=== PATIENT | male | born 1985 | race Hispanic/Latino ===

== ENCOUNTER 2024-02-13 19:03 | Emergency (ER) | payer OTHER, SELFPAY ==
[2024-02-13 19:04] VITALS: BP 140/73; PULSE 74; RESP 16; TEMP 36.6; O2SAT 99; BMI 26.6
--- NOTE | 2024-02-13 19:42 | EX.ED.GUMALE ---
HPI History of Present Illness Chief Complaint: Male Pain/Injury Informant: patient Pain Onset: Days Context: Gradual Onset Timing: Continuous Worsened by: Eating Relieved by: Nothing Narrative Narrative: Patient presents with lower abdominal pain, low back pain, chest pain, and shortness of breath that has been getting worse over the past several days. Patient states it is gradually getting worse. Patient admits to some nausea but denies any vomiting. Patient states his symptoms are worse with eating. Patient is nothing makes them better. Patient denies any fevers or chills. Patient denies any trauma or injury. Patient denies any dysuria, frequency, or hematuria. Patient denies any urethral discharge. [facility] Medical History Vapes nicotine containing substance Anxiety Home Medications ?Medication ?Instructions ?Recorded ?Last Taken ?Type ciprofloxacin HCl 500 mg tablet 500 mg PO BID #14 TABLETS 02/13/24 Unknown Rx doxepin 25 mg capsule 50 mg PO QHS PRN sleep 02/13/24 Unknown History Allergy/AdvReac Type Severity Reaction Status Date / Time No Known Allergies Allergy Verified 02/13/24 19:04 Surgical History no surgical history no surgical history Social History Smoking Status: Current every day smoker tobacco type: smokeless tobacco ROS ROS ED Constitutional Constitutional ED: Denies chills or fever(s) Eyes Eyes: Reports blurry vision ENT ENT ED: Denies rhinorrhea or sore throat Cardiovascular Cardiovascular: Reports chest pain; Denies palpitations Respiratory/Chest Respiratory/Chest: Reports dyspnea; Denies cough Gastrointestinal Gastrointestinal: Reports abdominal pain and nausea; Denies vomiting Genitourinary Genitourinary ED: Denies dysuria, hematuria or urinary frequency Musculoskeletal Musculoskeletal: Reports back pain; Denies neck pain Integumentary Denies abscess or rash Neurologic Neurologic: Denies headache(s) or weakness Allergic/Immunologic Allergic/Immunologic ED: Denies mouth swelling or urticaria EXAM Physical Exam Const Vital Signs: 02/13/24 19:04 02/13/24 21:04 Temperature 98 F Temperature Source Oral Pulse Rate 74 63 Respiratory Rate 16 16 Blood Pressure 140/73 H 137/86 H Blood Pressure Mean 95 103 Pulse Ox 99 98 Oxygen Delivery Method Room Air Room Air Positive well nourished and well developed General Appearance ED: well developed and NAD HEENT Reports moist mucous membranes normocephalic and atraumatic Neck supple and no JVD Resp normal respiratory effort and clear to auscultation bilaterally Cardio regular rate and regular rhythm GI non-tender and non-distended Palpation: soft Narrative: The testicles have a vertical lie bilaterally. There is good cremasteric reflex bilaterally. There is some mild tenderness over the epididymis of the left testicle. There is some mild tenderness in the left inguinal canal. There is no hernia palpated. There are no masses palpated. There are no external penile lesions noted. There is no urethral discharge noted. Neuro oriented x3, CN's II-XII intact bilaterally, moves all extremities, no focal motor deficits and no sensory deficits noted Sensorium / Orientation: alert Motor Exam: strength 5/5 throughout Psych mental status grossly normal MDM MDM MDM Narrative Medical decision making narrative: Differential diagnosis includes epididymitis, urinary tract infection, viral illness, and sexually transmitted disease. Urinalysis will be obtained to assess for urinary tract infection and hematuria. Urine for GC and chlamydia will be obtained to assess for sexually transmitted disease. CBC will be obtained to assess for leukocytosis and anemia. Basic metabolic profile will be obtained to assess for electrolyte abnormality and renal function. Lab Data Attestation: I reviewed the patient's lab results. Lab results narrative: CBC was reviewed and was within normal limits. Basic metabolic profile was reviewed and was within normal limits. Urinalysis was reviewed. There is no evidence of urinary tract infection or hematuria. GC and Chlamydia cultures were reviewed and were negative. Labs: Laboratory Results - last 24 hr 02/13/24 02/13/24 19:55 20:08 WBC 8.7 RBC 5.14 Hgb 15.9 Hct 46.9 MCV 91.2 MCH 30.9 MCHC 33.9 RDW Std Deviation 41.7 RDW Coeff of Rakesh 12.5 Plt Count 326 MPV 9.4 Immature Gran % (Auto) 0.200 Neut % (Auto) 59.0 Lymph % (Auto) 32.1 [place] % (Auto) 6.7 Eos % (Auto) 1.5 Baso % (Auto) 0.5 Absolute Neuts (auto) 5.1 Absolute Lymphs (auto) 2.78 Nucleated RBC % 0 Sodium 138 Potassium 3.8 Chloride 107 Carbon Dioxide 27.0 Anion Gap 4 L BUN 14 Creatinine 1.10 Estim Creat Clear Calc 88.95 Est GFR (MDRD) Af Amer 97 Est GFR (MDRD) Non-Af 80 BUN/Creatinine Ratio 12.7 Glucose 108 H Calcium 9.7 Urine Color Straw Urine Clarity Clear Urine pH 8.0 Ur Specific [place] 1.010 Urine Protein Negative Urine Glucose (UA) Normal Urine Ketones Negative Urine Occult Blood Negative Urine Nitrite Negative Urine Bilirubin Negative Urine Urobilinogen Normal Ur Leukocyte Esterase Negative Urine RBC 0-5 SEEN Urine WBC 0 SEEN Ur Squamous Epith Cells 0-5 SEEN Ur Transition Epith Cell 0-5 SEEN Urine Bacteria 0 SEEN Urine Mucus 0 SEEN Treatment and Re-Evaluation Narrative: Patient was advised of his findings. Patient was advised that this is most likely epididymitis. Patient was given a dose of Cipro here. Patient was given a prescription for Cipro. Patient was instructed to drink plenty of fluids. Patient was instructed to follow-up with his primary care physician in 5 to 7 days. Patient understood and was agreeable with the plan. All questions were answered. Discharge Plan Triage Chief Complaint: Male Pain/Injury ED Provider: Milidn Pagan Dx/Rx/DC Orders Clinical Impression: Epididymitis Instructions: ED Epididymitis Prescriptions: New ciprofloxacin HCl 500 mg tablet 500 mg PO BID Qty: 14 0RF No Action doxepin 25 mg capsule 50 mg PO QHS PRN (Reason: sleep) Primary Care Provider: Care Physician,No Primary Referrals: Carol Goodman MD [Med Staff - Active Staff] - 5-7 Days Care Physician,No Primary [Primary Care Provider] - Print Language: Maltese Disposition Disposition: Home, Self Care
[2024-02-13 20:11] LABS: Absolute Lymphocyte Count 2.78 X10^3/uL (0.83-4.51); Absolute Neutrophil Count 5.1 X10^3/uL (2.0-7.7); Basophil# 0.04 X10^3/uL; Basophil% 0.5 % (0-1); Eosinophil# 0.13 X10^3/uL; Eosinophils% 1.5 % (0-5); Hematocrit 46.9 % (40-54); Hemoglobin 15.9 g/dL (13.0-16.5); Lymphocyte # 2.78 X10^3/ul (0.83-4.51); Lymphocyte % 32.1 % (19-41); Mean Corp Hgb Conc 33.9 g/dL (32-36); Mean Corpuscular Hgb 30.9 pg (27.0-32.0); Mean Corpuscular Volume 91.2 fL (80-94); Mean Platelet Vol. 9.4 fl (6.2-12.0); Monocyte# 0.58 X10^3/uL; Monocyte% 6.7 % (0-10); NRBC Flagged by Analyzer 0 % (0-5); Neutrophil # 5.12 X10^3/uL (2.7-7.7); Platelet Count 326 K/mm3 (150-450); RBC Distribution Width CV 12.5 % (11.6-14.6); RBC Distribution Width SD 41.7 fl (35.1-43.9); Red Blood Count 5.14 M/mm3 (4.6-6.2); White Blood Count 8.7 K/mm3 (4.4-11.0)
[2024-02-13 20:18] LABS: Bacteria 0 SEEN /hpf (None Seen); Mucous, Urine 0 SEEN /hpf (<or=2+); White Blood Cells 0 SEEN /hpf (0-5)
[2024-02-13 20:20] LABS: Color, Urine Straw (Yellow); Glucose, Dipstick Normal (Normal); Ketone-Dipstick Negative (Negative); Leukocyte Esterase-Dipstick Negative /ul (Negative); Nitrite-Dipstick Negative (Negative); Occult Blood-Urine Negative /ul (Negative); Protein-Dipstick Negative (Negative); Urine Bilirubin Dipstick Negative (Negative); Urine Clarity Clear (Clear); Urine Urobilinogen Normal (Normal)
[2024-02-13 20:28] LABS: Anion Gap 4 (5-15); BUN 14 mg/dL (7-18); BUN/Creat Ratio 12.7 RATIO (10-20); Calcium,Total 9.7 mg/dL (8.5-10.1); Chloride 107 mmol/L (98-107); EST Glomerular Filtration Rate 80 mL/min (>60); Est Glom Filt Rate - Afr Amer 97 mL/min (>60); Estimated Creatinine Clearance 88.95 ml/min; Glucose 108 mg/dL (74-106); Potassium 3.8 mmol/L (3.5-5.1); Sodium Level 138 mmol/L (136-145)
[2024-02-13 20:32] LABS: Squamous Epithelial Cells - UA 0-5 SEEN /hpf (0-5)
[2024-02-13 20:34] LABS: Red Blood Cells-Urine 0-5 SEEN /hpf (0-5); Transitional Epithelial - Ur 0-5 SEEN /hpf (0-5)
[2024-02-13 21:04] VITALS: BP 137/86; PULSE 63; RESP 16; O2SAT 98
[2024-02-13 22:00] VITALS: BP 138/71; PULSE 59; RESP 16; TEMP 36.7; O2SAT 98
[2024-02-13 22:40] VITALS: BP 139/70; PULSE 56; RESP 16; TEMP 36.6; O2SAT 97
[2024-02-13] MEDS: Ciprofloxacin 500 MG Tablet PO (22:46)
== END 2024-02-13 22:47 | disposition home or self-care (01) ==
PROVIDERS: Emergency Provider Emergency Medicine; Visit Provider Emergency Medicine
DX: N45.1 Epididymitis (principal); R11.0 Nausea; R06.02 Shortness of breath; M54.50 Low back pain, unspecified; F17.290 Nicotine dependence, other tobacco product, uncomplicated
CPT/HCPCS: 80048; 81001; 85025; 87491; 87591; 99283

== ENCOUNTER 2024-03-27 15:15 | Emergency (ER) | payer MEDICAID, SELFPAY ==
[2024-03-27 15:16] VITALS: BP 130/97; PULSE 95; RESP 16; TEMP 36.6; O2SAT 99; BMI 27.0
[2024-03-27 16:39] VITALS: BP 124/78; PULSE 78; RESP 16; TEMP 37; O2SAT 98
[2024-03-27 17:00] VITALS: BP 125/71; PULSE 68; RESP 16; TEMP 36.7; O2SAT 99
--- NOTE | 2024-03-27 17:22 | CT_ITS ---
PROCEDURE: ABDOMEN/PELVIS W IV CONT ONLY REASON FOR EXAM: Abdominal pain. Diarrhea. TECHNIQUE: Abdomen and pelvis CT with intravenous contrast. Coronal and sagittal 2D reformatted images were provided. COMPARISON: None. FINDINGS: Lung bases are clear. Liver and spleen are unremarkable. Gallbladder is contracted. Pancreas, biliary system, and adrenal glands are unremarkable. Abdominal aorta demonstrates a normal caliber. There is a small fat containing umbilical hernia. Bilateral kidneys enhance homogeneously without hydronephrosis. Urinary bladder is smoothly contoured. Prostate calcifications are present. No colonic obstruction or pericolonic inflammatory changes are present. Appendix is unremarkable. Small bowel demonstrates a normal caliber. No free air or free fluid is identified. Evaluation of the osseous structures demonstrates no acute findings. CT/Abdomen/Pelvis W IV Cont ONLY IMPRESSION: No acute inflammatory changes, obstructive uropathy, free air, or free fluid. One or more dose reduction techniques were used (e.g., Automated exposure contr ol, adjustment of the mA and/or kV according to patient size, use of iterative reconstruction technique). Reading Location: [facility]
--- NOTE | 2024-03-27 17:22 | EX.ED.DYSGE1 ---
HPI History of Present Illness Chief Complaint: General Illness Detail of Chief Complaint: Diarrhea and abdominal pain Informant: patient Narrative Narrative: Patient presents with diarrhea and abdominal pain. Patient states he has had diarrhea since January and has not had a formed stool since then. He does recall being on an antibiotic in January but he cannot remember what antibiotic but thinks it was for a urinary tract infection. Patient denies any blood in his stool. He does describe diffuse abdominal pain. No history of inflammatory bowel disease. No prior abdominal surgeries. [facility] Medical History Vapes nicotine containing substance Anxiety Home Medications ?Medication ?Instructions ?Recorded ?Last Taken ?Type ciprofloxacin HCl 500 mg tablet 500 mg PO BID #14 TABLETS 02/13/24 Unknown Rx doxepin 25 mg capsule 50 mg PO QHS PRN sleep 02/13/24 Unknown History Allergy/AdvReac Type Severity Reaction Status Date / Time No Known Allergies Allergy Verified 03/27/24 15:21 Social History (Updated 03/27/24 @ 16:41 by Alyssa Souza) household members: significant other housing: apartment Smoking Status: Current every day smoker tobacco type: smokeless tobacco ROS ROS ED Review of Systems ROS Unobtainable: other Constitutional Constitutional ED: Reports lethargy; Denies chills, fever(s), sweats or weight loss Eyes Eyes: Denies blurry vision, change in vision or diplopia ENT ENT ED: Denies rhinorrhea or sore throat Cardiovascular Cardiovascular: Denies chest pain, orthopnea or racing heartbeat Respiratory/Chest Respiratory/Chest: Denies cough, dyspnea, dyspnea on exertion, orthopnea or sputum Gastrointestinal Gastrointestinal: Reports abdominal pain and diarrhea; Denies nausea or vomiting Genitourinary Genitourinary ED: Denies dysuria, hematuria or urinary frequency Musculoskeletal Musculoskeletal: Denies arthralgias, back pain, myalgias or neck pain Integumentary Denies abscess, Abrasions or rash Neurologic Neurologic: Denies headache(s) or weakness Psychiatric Psychiatric: Denies anxiety, depression or suicidal thoughts Endocrine Endocrinology: Denies polydipsia, polyphagia or polyuria Hematologic/Lymphatic Hematologic/Lymphatic: Denies easy bleeding, easy bruising or lymphadenopathy Allergic/Immunologic Allergic/Immunologic ED: Denies mouth swelling, tongue swelling or urticaria EXAM Physical Exam Const Vital Signs: 03/27/24 15:16 03/27/24 16:39 03/27/24 16:39 Temperature 97.8 F 98.6 F Temperature Source Temporal Oral Pulse Rate 95 78 Respiratory Rate 16 16 Respiratory Effort Normal Non-Labored Respiratory Pattern Normal Blood Pressure 130/97 H 124/78 H Blood Pressure Mean 108 93 Pulse Ox 99 98 Oxygen Delivery Method Room Air Room Air 03/27/24 17:00 03/27/24 18:00 03/27/24 19:16 Temperature 98.0 F 97.9 F Temperature Source Oral Oral Pulse Rate 68 68 78 Respiratory Rate 16 16 16 Respiratory Effort Respiratory Pattern Blood Pressure 125/71 H 111/66 128/89 H Blood Pressure Mean 89 81 102 Pulse Ox 99 99 98 Oxygen Delivery Method Room Air Room Air Positive well nourished and well developed General Appearance ED: well developed and NAD HEENT Reports TM's clear and moist mucous membranes normocephalic and atraumatic; Negative for trauma or tenderness Tympanic Membrane ED: Yes TM's clear Eyes PERRL and EOMs intact bilaterally General Eye ED: Negative for pale conjunctiva or scleral icterus Neck no lymphadenopathy, supple and no JVD General: Negative for tenderness Chest Wall inspection of chest normal and palpation of chest normal Chest: Negative for tenderness Resp normal respiratory effort and clear to auscultation bilaterally Effort and Inspection: Negative for respiratory distress or pain with movement Auscultation: Negative for rhonchi, wheezes or diminished lung sounds Cardio regular rate, regular rhythm, S1 normal heart sound, S2 normal heart sound and no murmurs Peripheral Pulses: pulses 2+ throughout GI normal to inspection, nondistended, normoactive bowel sounds, soft to palpation, non-distended and no masses GI Narrative: Mild diffuse tenderness. There is no rebound, rigidity, or peritoneal signs. No mass palpated. Back/Spine no CVA tenderness and no thoracic nor lumbar tenderness Extremity normal to inspection General Extremety ED: Negative for edema General Extremity: Negative for edema Neuro oriented x3, CN's II-XII intact bilaterally, no sensory deficits noted and gait normal Sensorium / Orientation: awake, alert, oriented to person, oriented to place and oriented to time Motor Exam: strength 5/5 throughout and strength abnormal Psych mental status grossly normal Skin no rashes or lesions noted and no wounds MDM MDM MDM Narrative Medical decision making narrative: Patient presents with diarrhea and intermittent abdominal pain that is been ongoing for several months. In the differential would be C. difficile versus inflammatory bowel disease versus other acute intra-abdominal process. IV line established. CBC with differential obtained showed a white count of 8.0 with hemoglobin 16.5 and platelet count of 293. Chemistries unremarkable. Lactate was normal at 1.5. LFTs were normal. Urinalysis normal. CT scan of the abdomen pelvis obtained showed no acute process. Patient unable to give a stool sample in the emergency department. I will write him a prescription to bring back stool to the lab for C. difficile as well as enteric pathogens and ova and parasites. Cynically he looks well. Discharged to home and referred to GI for follow-up Dr. Medeiros Lab Data Attestation: I reviewed the patient's lab results. Labs: Laboratory Results - last 24 hr 03/27/24 03/27/24 16:53 17:27 WBC 8.0 RBC 5.31 Hgb 16.5 Hct 48.8 MCV 91.9 MCH 31.1 MCHC 33.8 RDW Std Deviation 42.2 RDW Coeff of Rakesh 12.4 Plt Count 293 MPV 10.0 Immature Gran % (Auto) 0.200 Neut % (Auto) 61.7 Lymph % (Auto) 29.8 [place] % (Auto) 6.6 Eos % (Auto) 1.2 Baso % (Auto) 0.5 Absolute Neuts (auto) 4.9 Absolute Lymphs (auto) 2.39 Nucleated RBC % 0 Sodium 141 Potassium 3.7 Chloride 107 Carbon Dioxide 26.0 Anion Gap 7 BUN 7 Creatinine 1.05 Estim Creat Clear Calc 93.19 Est GFR (MDRD) Af Amer 102 Est GFR (MDRD) Non-Af 84 BUN/Creatinine Ratio 6.7 L Glucose 104 Lactic Acid 1.5 Calcium 8.9 Total Bilirubin 0.60 AST 18 ALT 33 Alkaline Phosphatase 102 Total Protein 7.8 Albumin 3.9 Globulin 3.9 Albumin/Globulin Ratio 1.0 Urine Color Yellow Urine Clarity Clear Urine pH 6.0 Ur Specific [place] 1.010 Urine Protein Negative Urine Glucose (UA) Normal Urine Ketones Negative Urine Occult Blood 10 H Urine Nitrite Negative Urine Bilirubin Negative Urine Urobilinogen Normal Ur Leukocyte Esterase Negative Urine RBC 0-5 SEEN Urine WBC 0 SEEN Ur Squamous Epith Cells 0-5 SEEN Ur Transition Epith Cell 0-5 SEEN Urine Bacteria 1+ Urine Mucus 0 SEEN Radiography Diagnostic Testing: Clinical Impression(s) from Imaging Studies Abdomen/Pelvis CT 03/27/24 17:22 IMPRESSION: No acute inflammatory changes, obstructive uropathy, free air, or free fluid. One or more dose reduction techniques were used (e.g., Automated exposure control, adjustment of the mA and/or kV according to patient size, use of iterative reconstruction technique). Reading Location: [facility] Discharge Plan Triage Chief Complaint: General Illness ED Provider: Shahram Connell Dx/Rx/DC Orders Clinical Impression: Diarrhea Instructions: ED Diarrhea, Unknown Cause Prescriptions: No Action doxepin 25 mg capsule 50 mg PO QHS PRN (Reason: sleep) ciprofloxacin HCl 500 mg tablet 500 mg PO BID Qty: 14 0RF Primary Care Provider: Care Physician,No Primary Referrals: Friend,Willie, [Med Staff - Active Staff] - 5-7 Days Care Physician,No Primary [Primary Care Provider] - Print Language: Hebrew Disposition Disposition: Home, Self Care
[2024-03-27 17:30] LABS: Mucous, Urine 0 SEEN /hpf (<or=2+); White Blood Cells 0 SEEN /hpf (0-5)
[2024-03-27] MEDS: 0.9% Normal Saline (1000mL) 1,000 ML 999 ML IV (17:30)
[2024-03-27 17:32] LABS: Color, Urine Yellow (Yellow); Glucose, Dipstick Normal (Normal); Ketone-Dipstick Negative (Negative); Leukocyte Esterase-Dipstick Negative /ul (Negative); Nitrite-Dipstick Negative (Negative); Occult Blood-Urine 10 /ul (Negative); Protein-Dipstick Negative (Negative); Urine Bilirubin Dipstick Negative (Negative); Urine Clarity Clear (Clear); Urine Urobilinogen Normal (Normal)
[2024-03-27 18:00] VITALS: BP 111/66; PULSE 68; RESP 16; TEMP 36.6; O2SAT 99
[2024-03-27 18:08] LABS: Absolute Lymphocyte Count 2.39 X10^3/uL (0.83-4.51); Absolute Neutrophil Count 4.9 X10^3/uL (2.0-7.7); Basophil# 0.04 X10^3/uL; Basophil% 0.5 % (0-1); Eosinophils% 1.2 % (0-5); Hematocrit 48.8 % (40-54); Hemoglobin 16.5 g/dL (13.0-16.5); Lymphocyte # 2.39 X10^3/ul (0.83-4.51); Lymphocyte % 29.8 % (19-41); Mean Corp Hgb Conc 33.8 g/dL (32-36); Mean Corpuscular Hgb 31.1 pg (27.0-32.0); Mean Corpuscular Volume 91.9 fL (80-94); Monocyte# 0.53 X10^3/uL; Monocyte% 6.6 % (0-10); NRBC Flagged by Analyzer 0 % (0-5); Neutrophil # 4.94 X10^3/uL (2.7-7.7); Neutrophil % 61.7 % (47-70); Platelet Count 293 K/mm3 (150-450); RBC Distribution Width CV 12.4 % (11.6-14.6); RBC Distribution Width SD 42.2 fl (35.1-43.9); Red Blood Count 5.31 M/mm3 (4.6-6.2)
[2024-03-27 18:13] LABS: AST(SGOT) 18 U/L (15-37); Alanine Aminotransfer ALT/SGPT 33 U/L (16-61); Albumin, Serum 3.9 g/dL (3.2-5.0); Alkaline Phosphatase 102 U/L (45-117); Anion Gap 7 (5-15); BUN 7 mg/dL (7-18); BUN/Creat Ratio 6.7 RATIO (10-20); Calcium,Total 8.9 mg/dL (8.5-10.1); Chloride 107 mmol/L (98-107); Creatinine, Serum 1.05 mg/dL (0.70-1.30); EST Glomerular Filtration Rate 84 mL/min (>60); Est Glom Filt Rate - Afr Amer 102 mL/min (>60); Estimated Creatinine Clearance 93.19 ml/min; Globulin 3.9 g/dL (2.2-4.2); Glucose 104 mg/dL (74-106); Potassium 3.7 mmol/L (3.5-5.1); Protein, Total 7.8 g/dL (6.4-8.2); Sodium Level 141 mmol/L (136-145)
[2024-03-27 18:14] LABS: Lactic Acid 1.5 mmol/L (0.4-1.9)
[2024-03-27 19:16] VITALS: BP 128/89; PULSE 78; RESP 16; O2SAT 98
[2024-03-27 19:30] LABS: Bacteria 1+ /hpf (None Seen); Red Blood Cells-Urine 0-5 SEEN /hpf (0-5); Squamous Epithelial Cells - UA 0-5 SEEN /hpf (0-5); Transitional Epithelial - Ur 0-5 SEEN /hpf (0-5)
[2024-03-27 20:56] VITALS: BP 128/89; PULSE 78; RESP 16; TEMP 36.8; O2SAT 98
--- NOTE | 2024-03-27 21:43 | CM.ED ---
Social Work Reason for visit: No PCP Patient confirmed that he does not currently have a PCP. [facility] provider list given. No further needs identified at this time. Nadya Harrell, SENIOR SCHEDULER, JET OPERATOR
== END 2024-03-27 21:05 | disposition home or self-care (01) ==
PROVIDERS: Emergency Provider Emergency Medicine; Visit Provider Emergency Medicine
DX: R19.7 Diarrhea, unspecified (principal); R10.84 Generalized abdominal pain; F17.290 Nicotine dependence, other tobacco product, uncomplicated
CPT/HCPCS: 74177; 80053; 81001; 83605; 85025; 96360; 96361; 99282; Q9967; A4216